=== PATIENT | female | born 1985 | race Two or more races ===

== ENCOUNTER 2023-02-27 05:57 | Emergency (ER) | payer SELFPAY ==
[~2023-02-27] VITALS: Ht 157.5 cm; Wt 79.0 kg
[2023-02-27 07:34] VITALS: BP 149/99; PULSE 91; RESP 16; TEMP 98.3; O2SAT 100
[2023-02-27] MEDS ORDERED: cefTRIAXone SOD 1,000 MG VL IM ONE (07:45)
[2023-02-27] MEDS ORDERED: EPINEPHrine HCL 1 MG/1 ML AMP SC ONE (07:45)
[2023-02-27] MEDS ORDERED: TRIA0.02 TOP (07:53)
[2023-02-27] MEDS ORDERED: METH4PAK PO (07:53)
[2023-02-27] MEDS ORDERED: CEPH500C PO (07:53)
== END 2023-02-27 08:03 | disposition home or self-care (01) ==
LOC: ER 05:57
DX: S70.362A Insect bite (nonvenomous), left thigh, initial encounter (principal); W57.XXXA Bitten or stung by nonvenomous insect and other nonvenomous arthropods, initial encounter; Y93.89 Activity, other specified; Y92.89 Other specified places as the place of occurrence of the external cause; Y99.8 Other external cause status
CPT/HCPCS: 96372; 99284; J0171; J0696